=== PATIENT | female | born 1990 | race African-American/Black ===

== ENCOUNTER 2018-12-23 12:27 | Emergency (ER) | payer SELFPAY ==
[2018-12-23 12:35] VITALS: BP 126/50
--- NOTE | 2018-12-23 15:23 | ED ---
Head Injury - HPI Summary HPI Summary: Patient is a 28-year-old female who presents to the ER for head injury that occurred yesterday. Pt. states that she tripped and fell hard striking her head on a door frame. Negative LOC. Pt. states since she has had a mild h/a and nausea. Pt. also notes neck pain and pain to right arm. No past medical hx. Pt. was advised by work to be checked today. NO past medical hx. Pt. denies fever, vision change, numbness, tingling, weakness. Sxs are moderate in severity. No current modifying factors. - History Of Current Complaint Chief Complaint: EDHeadInjury Stated Complaint: HEAD INJURY PER PT Time Seen by Provider: 12/23/18 13:28 Hx Obtained From: Patient Pain Intensity: 3 Pain Scale Used: 0-10 Numeric - Allergies/Home Medications Allergies/Adverse Reactions: Allergies Allergy/AdvReac Type Severity Reaction Status Date / Time No Known Allergies Allergy Verified 12/23/18 12:34 Home Medications: Home Medications NK [No Home Medications Reported] 12/23/18 [History Confirmed 12/23/18] PMH/Surg Hx/FS Hx/Imm Hx Previously Healthy: Yes Infectious Disease History: No Infectious Disease History: Denies: Traveled Outside the [place] in Last 30 Days - Family History Known Family History: Positive: Non-Contributory - Social History Occupation: Employed Full-time Lives: With Family Alcohol Use: Weekly Substance Use Type: Reports: Marijuana Smoking Status (MU): Never Smoked Tobacco Review of Systems Eyes: Negative Cardiovascular: Negative Negative: Chest Pain Respiratory: Negative Negative: Shortness Of Breath Gastrointestinal: Negative Negative: Vomiting, Nausea Positive: Other - neck pain and right arm pain Positive: Bruising Positive: Headache. Negative: Weakness, Paresthesia, Numbness All Other Systems Reviewed And Are Negative: Yes Physical Exam Triage Information Reviewed: Yes Vital Signs On Initial Exam: Initial Vitals Temp Pulse Resp BP Pulse Ox 98.2 F 76 18 126/50 98 12/23/18 12:28 12/23/18 12:28 12/23/18 12:28 12/23/18 12:28 12/23/18 12:28 Vital Signs Reviewed: Yes Appearance: Positive: Well-Appearing - Pt. sitting on bed in NAD> Skin: Positive: Warm, Dry Head/Face: Positive: Normal Head/Face Inspection, Other - No Pantoja sign or raccoon eyes. Eyes: Positive: Normal, EOMI, JUNO, Conjunctiva Clear ENT: Positive: Other - No hemotympanum bilaterally. Neck: Positive: Supple, Other: - Midline cervical tenderness noted. Respiratory/Lung Sounds: Positive: Clear to Auscultation, Breath Sounds Present Cardiovascular: Positive: Normal, RRR Musculoskeletal: Positive: Normal, Strength/ROM Intact, Other - 5 out of 5 strength in upper and lower extremities. Area of ecchymosis noted to right forearm with minimal bony tenderness. Neurological: Positive: Normal, Alert, Oriented to Person Place, Time, CN Intact II-III Psychiatric: Positive: Affect/Mood Appropriate Diagnostics - Vital Signs Vital Signs Temp Pulse Resp BP Pulse Ox 12/23/18 14:51 98.2 F 76 18 126/50 98 12/23/18 12:28 98.2 F 76 18 126/50 98 - Laboratory Lab Statement: Any lab studies that have been ordered have been reviewed, and results considered in the medical decision making process. Head Injury Course/Dx Course Of Treatment: Pt. presenting for evaluation after mild head injury. No neuro deficits. She does c/o neck pain and has midline tenderness. Neck xray negative for acute findings per radiology. No indication for head ct based on [place] head ct rules and pt. agreeable. Advised to avoid reading, tv/cellphone /computer screens. Can take tylenol or motrin for pain as directed. WIll f.u with [facility]. Pt. understands and agrees with plan. - Diagnoses Differential Diagnosis/HQI/PQRI: Concussion Without LOC, Contusion, Intracranial Bleed Provider Diagnoses: Head injury, Cervical strain, Arm contusion Discharge ED - Sign-Out/Discharge Documenting (check all that apply): Patient Departure Patient Received Moderate/Deep Sedation with Procedure: No - Discharge Plan Condition: Good Disposition: HOME Patient Education Materials: Cervical Strain (ED), Post Concussion Syndrome (ED ) Forms: *Work Release Referrals: [facility] [Outside] Additional Instructions: Follow up with [facility] Tylenol or Motrin for pain as directed Avoid reading, tv/cellphone/computer screens Apply warm compresses to neck Return to ER If symptoms change or worsen - Billing Disposition and Condition Condition: GOOD Disposition: Home
== END 2018-12-23 14:50 | disposition home or self-care (01) ==
LOC: ED 12:27
DX: S16.1XXA Strain of muscle, fascia and tendon at neck level, initial encounter (principal); M54.2 Cervicalgia; M79.601 Pain in right arm; R51 Headache; X58.XXXA Exposure to other specified factors, initial encounter; Y92.9 Unspecified place or not applicable
CPT/HCPCS: 72040; 99281